=== PATIENT | female | born 1985 | race Caucasian/White ===

== ENCOUNTER 2017-09-19 00:05 | Emergency (ER) | payer OTHER ==
[2017-09-19 00:03] VITALS: O2SAT 100
[2017-09-19] MEDS ORDERED: MORPHINE SULFATE 8 MG/ML INJ ONE (00:08)
[2017-09-19] MEDS ORDERED: DIPHTH/TETANUS/ACEL PERTUSSIS (BOOSTER) 0.5 ML VIAL/PFS IM ONE ×2 (00:09→00:10)
[2017-09-19] MEDS ORDERED: ONDANSETRON HCL 4 MG/2 ML VIAL ONE (00:09)
[2017-09-19] MEDS ORDERED: ceFAZolin 2 GM PREMIX 50 ML IV STA (00:10)
[2017-09-19] MEDS ORDERED: ceFAZolin 2 GM PREMIX 50 ML ONE (00:11)
[2017-09-19 00:21] LABS: AUTOMATED NEUTROPHIL # 8.9 TH/MM3 (1.8-7.7); BASOPHIL # 0.1 TH/MM3 (0-0.2); BASOPHIL % 0.8 % (0.0-2.0); EOSINOPHIL # 0.5 TH/MM3 (0-0.4); EOSINOPHIL % 3.6 % (0.0-4.0); HEMATOCRIT 37.8 % (35.0-46.0); HEMOGLOBIN 12.7 GM/DL (11.6-15.3); LYMPH % 29.6 % (9.0-44.0); LYMPHOCYTE # 4.3 TH/MM3 (1.0-4.8); MEAN CELL VOLUME 89.8 FL (80.0-100.0); MEAN CORPUSCULAR HEMOGLOBIN 30.1 PG (27.0-34.0); MEAN CORPUSCULAR HGB CONC 33.6 % (32.0-36.0); MONO % 5.3 % (0.0-8.0); MONOCYTE # 0.8 TH/MM3 (0-0.9); NEUT % 60.7 % (16.0-70.0); PLATELET COUNT 342 TH/MM3 (150-450); RED BLOOD COUNT 4.21 MIL/MM3 (4.00-5.30); RED CELL DISTRIBUTION WIDTH 13.6 % (11.6-17.2); WHITE BLOOD COUNT 14.6 TH/MM3 (4.0-11.0)
[2017-09-19] MEDS ORDERED: IOHEXOL 350 MG/ML 10 ML VIAL (for RAD DIAG) IVCONTRAST ONE (00:28)
[2017-09-19 00:29] LABS: PROTHROMBIN TIME - PATIENT 9.9 SEC (9.8-11.6)
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
[2017-09-19] MEDS ORDERED: MORPHINE SULFATE 2 MG/ML INJ IV PUSH ONE (01:15)
[2017-09-19 03:04] VITALS: BP 113/64; PULSE 120; RESP 18; TEMP 98.9; O2SAT 100
--- NOTE | 2017-09-19 03:46 | PD ---
Physical Exam Date Seen by Provider: Sep 19, 2017 Time Seen by Provider: 03:44 Narrative Skin: Patient has a large gaping laceration to the left posterior medial aspect of her thigh. The laceration measures 15 cm. No muscle or bone injury. No nerve injury. Data Data Last Documented VS Vital Signs Date Time Temp Pulse Resp B/P (MAP) Pulse Ox O2 Delivery O2 Flow Rate FiO2 09/19/17 03:04 98.9 120 18 113/64 (80) 100 Room Air 09/19/17 00:03 2.00 Orders Orders Morphine Inj (Morphine Inj) (09/19/17 00:08) Ondansetron Inj (Zofran Inj) (09/19/17 00:09) Qply-Rnk-Kwobzk (Booster) Inj (Boostrix (09/19/17 00:09) I-Stat Profile (09/19/17 00:07) I-Stat Creatinine (09/19/17 00:07) Complete Blood Count With Diff (09/19/17 00:07) Prothrombin Time / Inr (Pt) (09/19/17 00:07) Act Partial Throm Time (Ptt) (09/19/17 00:07) Type And Screen (09/19/17 00:07) Chest, Single Ap (09/19/17 00:07) Pelvis, Ap Only (Routine) (09/19/17 00:07) Ct Brain W/O Iv Contrast(Rout) (09/19/17 00:07) Ct Cerv Spine W/O Contrast (09/19/17 00:07) Ct Abd/Pel W Iv Contrast(Rout) (09/19/17 00:07) Iv Access Insert/Monitor (09/19/17 00:07) Ecg Monitoring (09/19/17 00:07) Oximetry (09/19/17 00:07) Oxygen Administration (09/19/17 00:07) Cefazolin 2 Gm Premix (Ancef 2 Gm Premix (09/19/17 00:11) Ct Thorax/ Chest W Iv Contrast (09/19/17 ) Femur, One View (09/19/17 ) Cefazolin 2 Gm Premix (Ancef 2 Gm Premix (09/19/17 00:10) Insg-Pfa-Hhpzom (Booster) Inj (Boostrix (09/19/17 00:10) Iohexol 350 Inj (Omnipaque 350 Inj) (09/19/17 00:28) Morphine Inj (Morphine Inj) (09/19/17 01:15) Ct Brain W/O Iv Contrast(Rout) (09/19/17 02:53) Labs Laboratory Tests Test 09/19/17 00:05 White Blood Count 14.6 TH/MM3 Red Blood Count 4.21 MIL/MM3 Hemoglobin 12.7 GM/DL Bedside Hemoglobin 12.6 G/DL Hematocrit 37.8 % Bedside Hematocrit 37.0 % Mean Corpuscular Volume 89.8 FL Mean Corpuscular Hemoglobin 30.1 PG Mean Corpuscular Hemoglobin Concent 33.6 % Red Cell Distribution Width 13.6 % Platelet Count 342 TH/MM3 Mean Platelet Volume 8.0 FL Neutrophils (%) (Auto) 60.7 % Lymphocytes (%) (Auto) 29.6 % Monocytes (%) (Auto) 5.3 % Eosinophils (%) (Auto) 3.6 % Basophils (%) (Auto) 0.8 % Neutrophils # (Auto) 8.9 TH/MM3 Lymphocytes # (Auto) 4.3 TH/MM3 Monocytes # (Auto) 0.8 TH/MM3 Eosinophils # (Auto) 0.5 TH/MM3 Basophils # (Auto) 0.1 TH/MM3 CBC Comment DIFF FINAL Differential Comment Prothrombin Time 9.9 SEC Prothromb Time International Ratio 1.0 RATIO Activated Partial Thromboplast Time 21.8 SEC Bedside Sodium 140 MMOL/L Bedside Potassium 3.5 MMOL/L Bedside Chloride 101 MMOL/L Bedside Blood Urea Nitrogen 10 MG/DL Bedside Creatinine 0.9 MG/DL Bedside Glucose 143 MG/DL [facility] Medical Record Reviewed: Yes Supervised Visit with YANDEL: Yes Interpretation(s) Last 24 hours Impressions Pelvis X-Ray 09/19/176 Signed Impressions: Service Date/Time: Tuesday, September 19, 2017 00:08 - CONCLUSION: Unremarkable examination of the pelvis. Zenon Swanson Jr., MD Head CT 09/19/176 Signed Impressions: Service Date/Time: Tuesday, September 19, 2017 00:19 - CONCLUSION: 1. Artifact versus small left subdural hematoma. Zenon Swanson Jr., MD Chest X-Ray 09/19/176 Signed Impressions: Service Date/Time: Tuesday, September 19, 2017 00:08 - CONCLUSION: No acute disease. Zenon Swanson Jr., MD Cervical Spine CT 09/19/17 0007 Signed Impressions: Service Date/Time: Tuesday, September 19, 2017 00:19 - CONCLUSION: No acute disease. Zenon Swanson Jr., MD Abdomen/Pelvis CT 09/19/176 Signed Impressions: Service Date/Time: Tuesday, September 19, 2017 00:24 - CONCLUSION: 1. Small nondisplaced fracture involving the coccyx. 2. Trace amount of free fluid in the cul-de-sac. 3. No acute intra-abdominal or intrapelvic process. Zenon Swanson Jr., MD Femur X-Ray 09/19/17 Signed Impressions: Service Date/Time: Tuesday, September 19, 2017 00:08 - CONCLUSION: Soft tissue defect. Zenon Swanson Jr., MD Chest CT 09/19/17 Signed Impressions: Service Date/Time: Tuesday, September 19, 2017 00:24 - CONCLUSION: Normal examination. Zenon Swanson Jr., MD Differential Diagnosis MDM: High Differential diagnoses: Fracture, sprain, strain, dislocation, contusion, neurovascular injury Narrative Course Patient's laceration is closed with sutures and jakob. Procedures Procedure Narrative LACERATION LOCATION: Left posterior medial thigh LENGTH: 15 cm NUMBER OF STITCHES/JAKOB: 25 REPAIR: The area of the laceration was prepped with Betadine and sterilely draped. The laceration was infiltrated with 1% lidocaine. The wound was copiously irrigated and explored without evidence of foreign body, tendon injury or neurovascular injury. Subcutaneous tissues approximated with 3-0 Vicryl. The wound was closed using jakob. This was a intermediate 2 layer repair. A sterile dressing was applied. The patient was advised to keep the dressing clean and dry. Patient tolerated the procedure well. Condition: Stable Preet Garcia Sep 19, 2017 03:46
[2017-09-19 04:18] VITALS: BP 128/85; PULSE 111; RESP 18; O2SAT 100
--- NOTE | 2017-09-19 04:19 | RADRPT ---
EXAM DATE/TIME: 09/19/2017 03:33 [facility] COMPARISON: CT BRAIN W/O CONTRAST, September 19, 2017, 0:19. INDICATIONS : Follow up possible subdural hematoma. RADIATION DOSE: 52.13 CTDIvol (mGy) MEDICAL HISTORY : None SURGICAL HISTORY : None. ENCOUNTER: Subsequent ACUITY: 1 day PAIN SCALE: 0/10 LOCATION: Left cranial TECHNIQUE: Multiple contiguous axial images were obtained of the head. Using automated exposure control and adj ustment of the mA and/or kV according to patient size, radiation dose was kept as low as reasonably a chievable to obtain optimal diagnostic quality images. DICOM format image data is available electro nically for review and comparison. FINDINGS: CEREBRUM: The ventricles are normal for age. No evidence of midline shift, mass lesion, hemorrhage or acute in farction. No extra-axial fluid collections are seen. POSTERIOR FOSSA: The cerebellum and brainstem are intact. The 4th ventricle is midline. The cerebellopontine angle i s unremarkable. EXTRACRANIAL: The visualized portion of the orbits is intact. SKULL: The calvaria is intact. No evidence of skull fracture. CONCLUSION: Normal examination. In particular, no subdural hemorrhage observed. Zenon Swanson Jr., MD on September 19, 2017 at 4:16 Board Certified Radiologist. This report was verified electronically.
[2017-09-19] MEDS ORDERED: TRAM50 PO (05:18)
[2017-09-19] MEDS ORDERED: MOBI15TA PO (05:18)
[2017-09-19] MEDS ORDERED: CEPH-460 PO (05:45)
[2017-09-19] MEDS ORDERED: KETOROLAC TROMETHAMINE 30 MG/ML (IVP) VIAL IV PUSH ONE (05:45)
[2017-09-19 06:26] VITALS: BP 128/65; TEMP 98.1
[2017-09-19 06:29] VITALS: O2SAT 100
== END 2017-09-19 06:30 | disposition home or self-care (01) ==
LOC: NEPE 00:05
DX: S81.812A Laceration without foreign body, left lower leg, initial encounter (principal); S32.2XXA Fracture of coccyx, initial encounter for closed fracture; V03.90XA Pedestrian on foot injured in collision with car, pick-up truck or van, unspecified whether traffic or nontraffic accident, initial encounter
CPT/HCPCS: 12005; 70450; 71045; 71260; 72125; 72170; 73551; 74177; 82435; 82565; 82947; 84132; 84295; 84520; 85025; 85610; 85730; 86850; 86900; 86901; 90715; 96374; 96375; 99285; J0690; J1885; J2270; J2405; Q9967